=== PATIENT | female | born 1960 | race Caucasian/White ===

== ENCOUNTER → 2018-07-09 | Outpatient (CLI) | payer OTHER ==
[~2018-07-09] MED LIST: ADVAIR 500-501 EACH INH; ASPIRIN325 PO; CARAFATE 1 GM TA1 G1 PO; CELEBREX 200 M200 M1 PO; DILAUDID 2 MG TA2 MG PO; IBUPROFEN 400400 M2 PO; KLOR-CON 1010 MEQ PO; LASIX 40 MG TAB40 M2 PO; LIDODERM 5%1 PATC1 TRANSDERM; MIRALAX17 GM PO; NICOTINE TRANSD21 M1; NORCO 10-325 T1 EACH PO; OXYCONTIN80 M1 PO; REGLAN 5 MG TAB5 MG PO; SENOKOT-S1 TA1 PO; SPIRIVA INH; TEGRETOL XR100 MG PO; TYLENOL325 MG PO; WELLBUTRIN 75 M75 M1 PO; XANAX1 MG PO; XOPENEX 0.63 MG/3 M1 IH; XOPENEX0.63 MG/3 PO; ZOPENEX INH
== END ==
LOC: RAD 07:20
DX: Z01.818 Encounter for other preprocedural examination (principal); J44.9 Chronic obstructive pulmonary disease, unspecified; J98.4 Other disorders of lung